=== PATIENT | female | born 1990 | race African-American/Black ===

== ENCOUNTER 2021-09-22 11:32 | Emergency (ER) | payer OTHER ==
[2021-09-22] MEDS ORDERED: Promethazine HCl 25 MG/ML VIAL IM PRN (21:49)
[2021-09-22] MEDS ORDERED: Acetaminophen 500 MG TAB PO PRN (21:49)
[2021-09-22] MEDS ORDERED: Ondansetron PF 4 MG/2 ML Vial IVP PRN (21:49)
[2021-09-22] MEDS ORDERED: Docusate 100 MG CAP PO PRN (21:49)
[2021-09-22] MEDS ORDERED: Zolpidem Tartrate 5 MG TAB PO PRN (21:49)
[2021-09-22] MEDS ORDERED: Misoprostol 200 MCG TAB PR PRN (21:49)
[2021-09-22] MEDS ORDERED: Ibuprofen 800 MG TAB PO PRN (21:49)
[2021-09-22] MEDS ORDERED: HYDROcodone/Acetaminophen 5/325 mg Tablet PO PRN ×2 (21:49)
[2021-09-22] MEDS ORDERED: Lidocaine 1% (PF) 30 ML VIAL SC PRN (21:49)
[2021-09-22] MEDS ORDERED: hydrALAZINE 20 MG/ML VIAL SLOW IVP PRN (21:49)
[2021-09-22] MEDS ORDERED: Butorphanol Tartrate 1 MG/ML VIAL SLOW IVP PRN (21:49)
[2021-09-22] MEDS ORDERED: Misoprostol 100 MCG TAB PO PRN (21:55)
[2021-09-22] MEDS ORDERED: NS w/ Oxytocin 30 units 500 ML IV SCH ×2 (22:00)
[2021-09-22] MEDS ORDERED: NS w/ Oxytocin 30 units 500 ML IVPB SCH ×4 (22:00→22:30)
[2021-09-22] MEDS ORDERED: Penicillin G Potassium 5 MILL.UNITS in Sodium Chloride 0.9% 100 ML IVPB SCH (22:00)
[2021-09-22] MEDS ORDERED: Lactated Ringer's 1,000 ML IV SCH (22:00)
[2021-09-22] MEDS ORDERED: Oxytocin 30 UNITS in Sodium Chloride 0.9% 500 ML IVPB SCH ×3 (22:15)
[2021-09-23] MEDS ORDERED: Penicillin G 2.5 MILL.units 2.5 MILL.UNITS in Premix Bag 1 BAG IVPB SCH (02:00)
== END 2021-09-22 12:23 | disposition home or self-care (01) ==
LOC: CSHERS 11:32
DX: O99.513 Diseases of the respiratory system complicating pregnancy, third trimester (principal); J06.9 Acute upper respiratory infection, unspecified; J45.909 Unspecified asthma, uncomplicated; O99.353 Diseases of the nervous system complicating pregnancy, third trimester; H61.23 Impacted cerumen, bilateral; O99.413 Diseases of the circulatory system complicating pregnancy, third trimester; I10 Essential (primary) hypertension; Z3A.39 39 weeks gestation of pregnancy
CPT/HCPCS: 99283; J2590; J7030; J7120

== ENCOUNTER 2021-09-22 20:53 | Inpatient (IN) | payer OTHER ==
[2021-09-22 21:17] VITALS: BMI 46.4
[2021-09-22 21:46] LABS: Fetal Membranes Rupture RUPTURE DETECTED (No Rupture)
[2021-09-22] MEDS ORDERED: Carboprost 250 MCG/ML AMP IM PRN (22:22)
[2021-09-22] MEDS ORDERED: Acetaminophen 500 MG TAB PO PRN (22:22)
[2021-09-22] MEDS ORDERED: hydrALAZINE 20 MG/ML VIAL SLOW IVP PRN (22:22)
[2021-09-22] MEDS ORDERED: HYDROcodone/Acetaminophen 5/325 mg Tablet PO PRN ×2 (22:22)
[2021-09-22] MEDS ORDERED: Ondansetron PF 4 MG/2 ML Vial IVP PRN (22:22)
[2021-09-22] MEDS ORDERED: Promethazine HCl 25 MG/ML VIAL IM PRN (22:22)
[2021-09-22] MEDS ORDERED: Misoprostol 200 MCG TAB PR PRN (22:22)
[2021-09-22] MEDS ORDERED: Ibuprofen 800 MG TAB PO PRN (22:22)
[2021-09-22] MEDS ORDERED: Lidocaine 1% (PF) 30 ML VIAL SC PRN (22:22)
[2021-09-22] MEDS ORDERED: Diphenoxylate HCl/Atropine Tablet PO PRN ×2 (22:22)
[2021-09-22] MEDS ORDERED: Penicillin G Potassium 5 MILL.UNITS in Sodium Chloride 0.9% 100 ML IVPB SCH (22:30)
[2021-09-22] MEDS: Butorphanol Tartrate 1 MG/ML VIAL SLOW IVP PRN (23:26)
[2021-09-22] MEDS: Lactated Ringer's 1,000 ML IV SCH (23:27)
[2021-09-22 23:33] LABS: Hemoglobin 12.5 g/dL (12.0-15.5); Mean Corpuscular HGB CONC 32.2 g/dL (32.0-36.0); Mean Corpuscular Hemoglobin 26.5 pg (27.0-33.0); Mean Corpuscular Volume 82.4 fl (81.6-98.3); Mean Platelet Volume 11.5 fl (7.4-10.4); Platelet Count 169 10x3/uL (150-450); RBC Distribution Width 13.7 % (11.5-14.5); Red Blood Cell (RBC) Count 4.71 10x6/uL (3.90-5.03); White Blood Cell (WBC) Count 10.7 10x3/uL (3.5-10.5)
[2021-09-23 00:08] LABS: Hep B Surf Ag Non-Reactive S/CO (NonReactive); Syphilis Antibody Nonreactive (Nonreactive); Syphilis Antibody Index 0.03 S/CO (<1.00 Non-Reactive)
[2021-09-23 00:39] LABS: HBSAg Index 0.19 S/CO (0-0.99)
[2021-09-23] MEDS: Butorphanol Tartrate 1 MG/ML VIAL SLOW IVP PRN (01:21)
[2021-09-23] MEDS ORDERED: Fentanyl 2 mcg/Bup 0.1% Cadd 100 ML ONE (01:37)
[2021-09-23 02:47] LABS: SARS-CoV-2 NAA Rapid Test Not Detected (NotDetected)
[2021-09-23] MEDS: Penicillin G Potassium 2.5 MILL.UNITS in Sodium Chloride 0.9% 50 ML IVPB SCH ×3 (03:14→11:07)
[2021-09-23] MEDS ORDERED: ePHEDrine Sulfate 50 MG/10 ML VIAL SLOW IVP PRN (03:49)
[2021-09-23] MEDS ORDERED: Naloxone HCl 0.4 mg/ml Vial IVP PRN ×2 (03:49)
[2021-09-23] MEDS ORDERED: Hydrocerin (Eucerin) Cream 120 gm Jar TOP PRN (03:49)
[2021-09-23] MEDS ORDERED: diphenhydrAMINE 50 MG/ML VIAL IVP PRN (03:49)
[2021-09-23] MEDS ORDERED: Ondansetron PF 4 MG/2 ML Vial IVP PRN ×2 (03:49→23:12)
[2021-09-23] MEDS ORDERED: Promethazine HCl 25 MG/ML VIAL IM PRN ×2 (03:49→23:12)
[2021-09-23] MEDS ORDERED: Acetaminophen 325 MG TAB PO PRN (03:49)
[2021-09-23] MEDS ORDERED: Lactated Ringer's 500 ML IV PRN (03:49)
[2021-09-23] MEDS ORDERED: Communication Order-Pharmacy FS SCH (04:00)
[2021-09-23] MEDS ORDERED: Fentanyl 2 mcg/Bupivacaine 0.1% Cassette 100 ML EPIDURAL SCH (04:00)
[2021-09-23] MEDS: Misoprostol 100 MCG TAB PO SCH ×5 (04:50→23:49)
[2021-09-23] MEDS ORDERED: NS w/ Oxytocin 30 units 500 ML ONE (08:15)
[2021-09-23] MEDS: NS w/ Oxytocin 30 units 500 ML IV SCH ×2 (08:16→21:28)
[2021-09-23] MEDS: Lactated Ringer's 1,000 ML IV SCH ×3 (11:00→23:50)
[2021-09-23] MEDS: Penicillin G 2.5 MILL.units 50 ML IVPB SCH ×3 (15:15→18:50)
[2021-09-23] MEDS ORDERED: Benzocaine-Menthol 82.5 ML CAN TOP PRN (23:12)
[2021-09-23] MEDS ORDERED: Misoprostol 200 MCG TAB VAG PRN (23:12)
[2021-09-23] MEDS ORDERED: Measles/Mumps/Rubella 10 MCG/0.5 ML VIAL SC ONE (23:12)
[2021-09-23] MEDS ORDERED: HYDROcodone/Acetaminophen 5/325 mg Tablet PO PRN (23:12)
[2021-09-23] MEDS ORDERED: Varicella virus, LIVE 0.5 ML VIAL SC ONE (23:12)
[2021-09-23] MEDS ORDERED: hydrALAZINE 20 MG/ML VIAL SLOW IVP PRN (23:12)
[2021-09-23] MEDS ORDERED: Boostrix 0.5 ML (Tdap) VIAL IM ONE (23:12)
[2021-09-23] MEDS ORDERED: Milk Of Magnesia 30 ML UDCUP PO PRN (23:12)
[2021-09-23] MEDS ORDERED: Zolpidem Tartrate 5 MG TAB PO PRN (23:12)
[2021-09-23] MEDS ORDERED: Preparation H Ointment 28 GM TUBE PR PRN (23:12)
[2021-09-23] MEDS ORDERED: Bisacodyl 10 MG SUPP PR PRN (23:12)
[2021-09-23] MEDS ORDERED: diphenhydrAMINE 25 MG CAP PO PRN (23:12)
[2021-09-23] MEDS ORDERED: Lanolin Ointment 7 GM TUBE TOP PRN (23:12)
[2021-09-23] MEDS ORDERED: NS w/ Oxytocin 30 units 500 ML IV SCH (23:15)
[2021-09-24 05:06] LABS: Hemoglobin 11.2 g/dL (12.0-15.5); Mean Corpuscular HGB CONC 32.6 g/dL (32.0-36.0); Mean Corpuscular Hemoglobin 26.9 pg (27.0-33.0); Mean Corpuscular Volume 82.5 fl (81.6-98.3); Mean Platelet Volume 11.3 fl (7.4-10.4); Platelet Count 142 10x3/uL (150-450); RBC Distribution Width 13.6 % (11.5-14.5); Red Blood Cell (RBC) Count 4.17 10x6/uL (3.90-5.03); White Blood Cell (WBC) Count 9.8 10x3/uL (3.5-10.5)
[2021-09-24] MEDS: Ibuprofen 800 MG TAB PO SCH ×3 (06:17→21:07)
[2021-09-24] MEDS: Ferrous Sulfate 325 MG TAB PO SCH ×2 (08:43→17:40)
[2021-09-24] MEDS: Prenatal Vitamin 1 TAB PO SCH (08:45)
[2021-09-24] MEDS: Docusate Calcium (SURFAK) 240 MG CAP PO SCH ×2 (08:45→21:07)
[2021-09-25] MEDS: Ibuprofen 800 MG TAB PO SCH (04:25)
[2021-09-25] MEDS: Ferrous Sulfate 325 MG TAB PO SCH (08:40)
[2021-09-25] MEDS: Prenatal Vitamin 1 TAB PO SCH (09:11)
[2021-09-25] MEDS: Docusate Calcium (SURFAK) 240 MG CAP PO SCH (09:12)
[2021-09-25 12:04] VITALS: BP 151/72; TEMP 98.3
== END 2021-09-25 12:35 | disposition home or self-care (01) | DRG 807 ==
LOC: CSHLD/OP 20:53 → CSHLD 21:47 → CSHPP 09-23 22:58
PROVIDERS: ADMIT Obstetrics & Gynecology; ATTEND Obstetrics & Gynecology
PROC: 10E0XZZ Delivery of Products of Conception, External Approach (ICD-10-PCS; principal; 2021-09-23)
PROC: 3E0P7VZ Introduction of Hormone into Female Reproductive, Via Natural or Artificial Opening (ICD-10-PCS; 2021-09-25)
DX: O42.12 Full-term premature rupture of membranes, onset of labor more than 24 hours following rupture (principal); Z37.0 Single live birth; Z3A.39 39 weeks gestation of pregnancy; Z20.822 Contact with and (suspected) exposure to COVID-19; O77.0 Labor and delivery complicated by meconium in amniotic fluid
CPT/HCPCS: 36415; 51702; 84112; 85027; 86780; 86850; 86900; 86901; 87340; 99283; 99285; J0595; J2405; J2540; J2590; J3490; J7030; J7120; U0002

== ENCOUNTER 2022-04-05 07:31 | Emergency (ER) | payer OTHER, SELFPAY ==
[2022-04-05 08:20] LABS: Bilirubin Neg (Negative); Blood, Urine 250 (Negative); Clarity Slightly Cloudy (Clear); Glucose, Urine (Dipstick) Normal (Negative); Ketone, Urine Negative (Negative); Leukocyte Negative (Negative); Nitrite Negative (Negative); Protein, Urine (Dipstick) Negative (Neg-Trace); Urobilinogen Normal mg/dL (Less than 2); pH, Urine 6.5 (5.0-9.0)
[2022-04-05] MEDS ORDERED: Ondansetron PF 4 MG/2 ML Vial ONE (08:20)
[2022-04-05 08:27] LABS: Bacteria/HPF Rare-Few HPF (None Seen); Squamous Epithelial 0-3 HPF (0-3); WBC/HPF 0-3 HPF (0-3)
[2022-04-05 08:42] LABS: #Eosinphils 0.2 10x3/uL (0.0-0.5); #Monocytes 0.6 10x3/uL (0.0-1.1); %Basophils 0.5 % (0.0-2.0); %Lymphocytes 26.1 % (18.0-47.0); %Monocytes 9.2 % (0.0-10.0); %Neutrophils 60.7 % (40.0-75.0); Hemoglobin 13.4 g/dL (12.0-15.5); Mean Corpuscular HGB CONC 31.7 g/dL (32.0-36.0); Mean Corpuscular Hemoglobin 26.3 pg (27.0-33.0); Mean Corpuscular Volume 83.1 fl (81.6-98.3); Mean Platelet Volume 10.7 fl (7.4-10.4); Platelet Count 215 10x3/uL (150-450); RBC Distribution Width 13.7 % (11.5-14.5); Red Blood Cell (RBC) Count 5.09 10x6/uL (3.90-5.03); White Blood Cell (WBC) Count 6.6 10x3/uL (3.5-10.5)
[2022-04-05 09:08] LABS: ALT (SGPT) 23 U/L (8-55); AST (SGOT) 20 U/L (5-34); Albumin 4.1 g/dL (3.5-5.0); Alkaline Phosphatase 72 U/L (40-110); Anion Gap 13 mmol/L (10-20); BUN (Urea Nitrogen) 6 mg/dL (7.0-18.7); Bilirubin, Total 0.3 mg/dL (0.2-1.2); Calc. Creatinine Clearance 0 mL/min (70-130); Calcium 8.9 mg/dL (7.8-10.44); Carbon Dioxide 24 mmol/L (22-29); Chloride 105 mmol/L (98-107); Globulin 3.2 g/dL (2.4-3.5); Glucose 104 mg/dL (70-105); Potassium 3.8 mmol/L (3.5-5.1); Protein, Total 7.3 g/dL (6.0-8.3); Sodium 138 mmol/L (136-145)
== END 2022-04-05 10:40 | disposition home or self-care (01) ==
LOC: CSHERS 07:31
DX: R11.2 Nausea with vomiting, unspecified (principal); R19.7 Diarrhea, unspecified; I10 Essential (primary) hypertension
CPT/HCPCS: 80053; 81003; 81015; 84702; 85025; 96361; 96374; J2405

== ENCOUNTER 2022-06-13 09:22 | Emergency (ER) | payer OTHER ==
[2022-06-13] MEDS ORDERED: Ibuprofen 200 MG TAB ONE ×2 (09:51→09:54)
[2022-06-13] MEDS ORDERED: Lidocaine 1% (PF) 30 ML VIAL ONE (10:27)
[2022-06-13] MEDS ORDERED: Bupivacaine 0.25% HCL 30 ML VIAL ONE (10:27)
== END 2022-06-13 11:31 | disposition home or self-care (01) ==
LOC: CSHERS 09:22
DX: S62.620A Displaced fracture of middle phalanx of right index finger, initial encounter for closed fracture (principal); I10 Essential (primary) hypertension; W22.8XXA Striking against or struck by other objects, initial encounter
CPT/HCPCS: 26725; J2001; S0020

== ENCOUNTER 2022-06-14 08:01 | Emergency (ER) | payer OTHER | END 2022-06-14 08:50 | disposition home or self-care (01) | LOC: CSHERS 08:01 | DX: S62.620A Displaced fracture of middle phalanx of right index finger, initial encounter for closed fracture (principal); I10 Essential (primary) hypertension; X58.XXXA Exposure to other specified factors, initial encounter | CPT/HCPCS: 26720 ==

== ENCOUNTER 2022-12-24 11:50 | Emergency (ER) | payer OTHER ==
[2022-12-24] MEDS ORDERED: Ketorolac Tromethamine 30 MG/ML VIAL ONE (13:15)
== END 2022-12-24 13:42 | disposition home or self-care (01) ==
LOC: CSHERS 11:50
DX: S62.630A Displaced fracture of distal phalanx of right index finger, initial encounter for closed fracture (principal); I10 Essential (primary) hypertension; W23.0XXA Caught, crushed, jammed, or pinched between moving objects, initial encounter
CPT/HCPCS: 96372; J1885

== ENCOUNTER 2023-09-25 20:43 | Emergency (ER) | payer SELFPAY ==
[2023-09-25] MEDS ORDERED: HYDROcodone/Acetaminophen 5/325 mg Tablet ONE (22:08)
== END 2023-09-25 22:47 | disposition home or self-care (01) ==
LOC: CSHERS 20:43
DX: S62.307A Unspecified fracture of fifth metacarpal bone, left hand, initial encounter for closed fracture (principal); S61.217A Laceration without foreign body of left little finger without damage to nail, initial encounter; I10 Essential (primary) hypertension; W23.0XXA Caught, crushed, jammed, or pinched between moving objects, initial encounter
CPT/HCPCS: 29125

== ENCOUNTER 2025-10-12 22:00 | Emergency (ER) | payer SELFPAY ==
[2025-10-12] MEDS ORDERED: Ibuprofen 200 MG TAB ONE (23:00)
== END 2025-10-12 23:25 | disposition home or self-care (01) ==
LOC: CSHERS 22:00
DX: S42.001A Fracture of unspecified part of right clavicle, initial encounter for closed fracture (principal); I10 Essential (primary) hypertension; W18.30XA Fall on same level, unspecified, initial encounter; Y92.009 Unspecified place in unspecified non-institutional (private) residence as the place of occurrence of the external cause
CPT/HCPCS: 99283